=== PATIENT | male | born 1955 | race Caucasian/White ===

== ENCOUNTER → 2023-12-10 14:28 | Outpatient (REF) | payer BC, SELFPAY | LOC: DHCBC MAIN 14:28 | PROVIDERS: ATTENDING PHYSICIAN Internal Medicine Cardiovascular Disease; FAMILY PHYSICIAN Internal Medicine | DX: Q23.1 Congenital insufficiency of aortic valve (principal); I77.810 Thoracic aortic ectasia | CPT/HCPCS: 93306 ==

== ENCOUNTER → 2025-04-26 07:55 | Outpatient (REF) | payer BC, SELFPAY | LOC: RCS 07:55 | PROVIDERS: ATTENDING PHYSICIAN Internal Medicine Medical Oncology | DX: C50.421 Malignant neoplasm of upper-outer quadrant of right male breast (principal); C50.811 Malignant neoplasm of overlapping sites of right female breast | CPT/HCPCS: 93005 ==